=== PATIENT | male | born 1975 | race Caucasian/White ===

== ENCOUNTER → 2018-03-12 | Outpatient (CLI) | payer OTHER ==
--- NOTE | 2018-03-12 14:59 | Diagnostic Imaging Report ---
PROCEDURE: US Gallbladder. TECHNIQUE: Multiple real-time grayscale images were obtained over the right upper quadrant in various projections. INDICATION: Right upper quadrant pain. The visualized pancreas is unremarkable. The liver is unremarkable. No discrete liver masses seen. The gallbladder is without stones or sludge. There are small gallbladder polyps. No wall thickening or biliary ductal dilatation is seen. The right kidney is unremarkable. There is no ascites. IMPRESSION: Unremarkable gallbladder ultrasound. Dictated by: Dictated on workstation # [id number]
== END ==
LOC: RAD 13:49
PROVIDERS: ATTEND Nurse Practitioner Family
DX: R10.11 Right upper quadrant pain (principal)
CPT/HCPCS: 76705